=== PATIENT | female | born 1970 | race Caucasian/White ===

== ENCOUNTER 2017-07-09 14:10 | Emergency (ER) | payer BC, OTHER ==
[~2017-07-09] VITALS: Ht 167.6 cm; Wt 127.6 kg
[2017-07-09 14:20] VITALS: TEMP 37.4; Ht 167.6 cm; Wt 127.6 kg
[2017-07-09] MEDS ORDERED: DIAZEPAM 5MG TAB PO STA (15:08)
[2017-07-09] MEDS ORDERED: DULO60CA44 PO (15:18)
[2017-07-09] MEDS ORDERED: TRAZ50TA35 PO (15:18)
[2017-07-09] MEDS ORDERED: HYDR-5688 PO (15:18)
[2017-07-09] MEDS ORDERED: MISCCAP80 PO (15:18)
[2017-07-09] MEDS ORDERED: MULT-513 PO (15:18)
--- NOTE | 2017-07-09 15:29 | EMERGENCY ROOM VISIT NOTE ---
History Report prepared by Adam: Costa Campos Under the Supervision of: Dr. Octavio Gamez M.D. First contact with patient: 15:06 Chief Complaint: BACK PAIN Stated Complaint: SEVERE BACK PAIN,REFER FOR MRI T12- L1 History of Present Illness The patient is a 47 year old female who presents to the Emergency Room with complaints of constant back pain since June 10, 2017. She states that she had a fall at that time where she slipped and landed on her back and injured her left foot. She notes numbness in left leg and left foot. She states the pain worsens with walking. She currently rates her pain a 9/10 in severity. She was seen by Dr. Long and was advised to come to the ED for MRI evaluation. She notes that she had a CT scan at [place]. She states the CT scan shows injury at T12-L1. She states that she was prescribed steroids, muscle relaxers, and antiinflammatories, which she completed treatment seven days ago. She denies any urinary symptoms, diarrhea, or abdominal pain. Source of History: patient Onset: June 10, 2017 Position: back Symptom Intensity: 9/10 Timing: constant Modifying Factors (Worsening): other (walking) Associated Symptoms: + numbness (in left leg and left foot), No abdominal pain, No diarrhea, No urinary symptoms Note: Patient injured her back at T12-L1. Review of Systems See HPI for pertinent positives and negatives. A total of ten systems were reviewed and were otherwise negative. Past Medical & Surgical Medical Problems: (1) Fall (2) H/O of ankle surgery (3) Spinal stenosis Surgical Problems: (1) H/O shoulder surgery (2) H/O shoulder surgery (3) H/O: hysterectomy Family History Cancer Gallbladder disease Hypertension Social History Smoking Status: Never Smoker Smokeless Tobacco Use: No Alcohol Use: occasionally (2 per week) Drug Use: none Housing Status: lives with family Occupation Status: unemployed Current/Historical Medications Scheduled Duloxetine Hcl (Cymbalta), 60 MG PO DAILY Hydrocodone/Acetaminophen 5MG/325MG (Jefferson 5MG/325MG), 1 TABLET PO TID Multivitamins/Minerals (Mvi With Minerals), 1 TAB PO DAILY Probiotic Product (Probiotic), 2 CAP PO DAILY Trazodone Hcl (Trazodone), 100 MG PO HS Allergies Coded Allergies: Adhesives (Verified Allergy, Severe, BREAKOUT, 07/09/17) Codeine (Verified Allergy, Severe, VOMITING, 07/09/17) Erythromycin (Verified Allergy, Severe, HIVES, 07/09/17) Physical Exam Vital Signs Date Time Temp Pulse Resp B/P (MAP) Pulse Ox O2 Delivery O2 Flow Rate FiO2 07/09/17 19:59 103 16 169/106 92 07/09/17 19:12 100 16 150/99 93 Room Air 07/09/17 18:29 103 16 158/113 94 Room Air 07/09/17 17:07 64 16 142/76 97 Room Air 07/09/17 16:09 74 16 145/100 97 Room Air 07/09/17 14:20 37.4 102 20 181/101 95 Room Air Physical Exam GENERAL: Awake, alert, well-appearing, in no distress HENT: Normocephalic, atraumatic. Oropharynx unremarkable. EYES: Normal conjunctiva. Sclera non-icteric. NECK: Supple. No nuchal rigidity. FROM. No JVD. RESPIRATORY: Clear to auscultation. CARDIAC: Regular rate, normal rhythm. Extremities warm and well perfused. Pulses equal. ABDOMEN: Soft, non-distended. No tenderness to palpation. No rebound or guarding. No masses. RECTAL: Deferred. MUSCULOSKELETAL: Chest examination reveals no tenderness. The back is symmetrical on inspection without obvious abnormality. There is no CVA tenderness to palpation. No joint edema. Mild tenderness to upper and lower L- spine. No step-offs. Mild tenderness in right lumbar region extending distally in sciatica region. LOWER EXTREMITIES: Calves are equal size bilaterally and non-tender. No edema. No discoloration. Positive straight leg raise. 4/5 strength of L5. Sensation grossly in tact NEURO: Normal sensorium. No sensory or motor deficits noted. SKIN: No rash or jaundice noted. Medical Decision & Procedures ER Provider Diagnostic Interpretation: Radiology results as stated below per my review and radiologist interpretation: MRI OF THE THORACIC SPINE WITHOUT CONTRAST CLINICAL HISTORY: Severe back pain following fall. COMPARISON: None. TECHNIQUE: Utilizing a 1.5 Radha magnet and dedicated coil, multiplanar, multiecho imaging of the thoracic spine was performed without IV contrast. FINDINGS: Alignment of the thoracic spine is anatomic. Vertebral body heights are maintained. Multiple T1 and T2 hyperintense lesions within the thoracic spine reflect hemangiomas. No intracanalicular mass or fluid collection is present. There is no fracture or suspicious marrow replacement within the thoracic spine. Thoracic cord signal and caliber are normal. Paravertebral soft tissues are unremarkable. Multiple small disc protrusions are noted. These include a small right paracentral disc protrusion at T6-T7 the results in mild during of the central canal. A tiny central disc protrusion at T7-T8 results in minimal narrowing of the central canal. A small right paracentral disc protrusion at T9-T10 results in mild narrowing of the central canal. A left paracentral disc protrusion at T10-T11 indents the left ventral aspect of the cord. There is no cord signal abnormality. There is moderate narrowing of the left aspect of the canal at this level. A small right paracentral disc protrusion at T11-T12 results in mild narrowing of the central canal. IMPRESSION: 1. No thoracic spine fracture by MRI. No suspicious marrow replacement. No intracanalicular fluid collection. 2. Normal thoracic cord signal and caliber. 3. Multiple small disc protrusions within the thoracic spine, as described above. A left paracentral disc protrusion at T10-T11 indents the left ventral aspect of the cord. No cord signal abnormality. Electronically signed by: Rafi Wood M.D. 07/09/2017 6:20 PM Dictated Date/Time: 07/09/2017 6:13 PM LUMBAR SPINE W/O CONTRAST HISTORY: Trauma. Pain. Neuropathy. Findings; Heterogeneous bone marrow signal characteristics most likely age-related. Degenerative intervertebral disc change most significant from L4 through S1. Posterior bulging discs at L4-L5 and L5-S1 based on the sagittal images. No evidence for compression deformity. Heterogeneous bone marrow signal characteristics most likely age-related. L1-L2: Minimal broad-based disc bulge. L2-L3: Minimal broad-based disc bulge. Minimal narrowing left neural foramina. L3-L4: Minimal multifactorial narrowing of the spinal canal. Minimal broad-based disc bulge. L4-L5: Moderate to significant multifactorial narrowing of the spinal canal. Broad-based disc herniation. Significant narrowing of the right neuroforamina. Moderate narrowing left neuroforamina. L5-S1: Moderate multifactorial narrowing of the spinal canal. Significant narrowing of the neural foramina bilaterally. IMPRESSION: 1. Moderate broad-based disc herniations with multifactorial narrowing of the spinal canal at L4-L5 and L5-S1. 2. Significant narrowing of the right neuroforamina at L4-L5 and moderate narrowing of the left neural foramina at L4-L5 and bilaterally at L5-S1. 3. Minimal disc bulges at all additional levels. The above report was generated using voice recognition software. It may contain grammatical, syntax or spelling errors. Electronically signed by: El Rosario M.D. 07/09/2017 6:31 PM Dictated Date/Time: 07/09/2017 6:27 PM Medications Administered Medications (Trade) Dose Ordered Sig/Fitz Route Start Time Stop Time Status Last Admin Dose Admin Diazepam (Valium Tab) 5 mg NOW STAT PO 07/09/17 15:08 07/09/17 15:15 DC 07/09/17 15:23 5 MG Dexamethasone Sodium Phosphate (Dexamethasone Inj Pf) 10 mg NOW ONCE IM 07/09/17 20:00 07/09/17 20:01 DC 07/09/17 19:54 10 MG Acetaminophen/ Hydrocodone Bitart (Jefferson 5/325 Tab) 1 tab NOW STAT PO 07/09/17 19:46 07/09/17 19:48 DC 07/09/17 19:53 1 TAB ED Course 1507: The patient was evaluated in room C3. A complete history and physical exam was performed. 1903: I spoke with Dr. Long, orthopedic surgeon. We discussed the patients case. He will follow up with the patient as an outpatient. 1924: I reassessed the patient at this time. She is resting comfortably. I discussed the results and treatment plan with the patient. I answered all pertaining questions that she had. She expressed understanding and verbalized agreement. The patient will be discharged home. Medical Decision I reviewed the patient's past medical history, medications, and the nursing notes as described above. The patient's presentation and history were concerning for fracture disc herniation, disc bulge, spinal stenosis, and lumbar sacral radiculopathy The patient is a 47-year-old woman with a past medical history of recent fall back in May presents emergency department after referred [facility] concern for T12-L1 compression per hpi. The patient is no acute distress , afebrile with stable vital signs. She reports intermittent radicular symptoms in the right lower extremity. On exam the patient has grossly intact sensation however 4 out of [address] Long, spine surgeon requesting MRI, for possible admission and surgery. MRIs negative for any acute fracture or gross instability. Otherwise shows extensive disc disease which explains the patient's symptoms but no evidence of cord compromise. Discussed with Dr. Long and his concern was regarding possible T12-L1 fracture or instability and given the MRI is reassuring in this regard no indication for admission for surgery. Rather, patient will follow-up in the spine clinic for further close reviewed the patient's imaging and discussion of further treatment plan. Findings and plan for follow-up reviewed with patient. Patient agreeable and d/c'd per discharge instructions. Medication Reconcilliation Current Medication List: was personally reviewed by me Consults Time Called: 1899 Consulting Physician: Dr. Long, orthopedic surgeon Returned Call: [address] Long, orthopedic surgeon. We discussed the patients case. He will follow up with the patient as an outpatient. Impression Primary Impression: Lumbosacral disc disease Additional Impression: Lumbosacral radiculopathy Scribe Attestation The scribe's documentation has been prepared under my direction and personally reviewed by me in its entirety. I confirm that the note above accurately reflects all work, treatment, procedures, and medical decision making performed by me. Departure Information Dispostion Home / Self-Care Referrals Kilo Long,Damian.O. Forms HOME CARE DOCUMENTATION FORM, IMPORTANT VISIT INFORMATION Patient Instructions Lumbar Radiculopathy, My [facility] Additional Instructions Please follow up with your spine surgeon for re-evaluation tomorrow for an appointment next week for re-evaluation. Otherwise, your exam and MRI of your thoracic and lumbar spine did not show signs of an emergent condition at this time. Continue your current medications. Return to the emergency department for worsening symptoms as described in the accompanying instructions. Problem Qualifiers
--- NOTE | 2017-07-09 18:22 | DIAGNOSTIC IMAGING REPORT ---
MRI OF THE THORACIC SPINE WITHOUT CONTRAST CLINICAL HISTORY: Severe back pain following fall. COMPARISON: None. TECHNIQUE: Utilizing a 1.5 Radha magnet and dedicated coil, multiplanar, multiecho imaging of the thoracic spine was performed without IV contrast. FINDINGS: Alignment of the thoracic spine is anatomic. Vertebral body heights are maintained. Multiple T1 and T2 hyperintense lesions within the thoracic spine reflect hemangiomas. No intracanalicular mass or fluid collection is present. There is no fracture or suspicious marrow replacement within the thoracic spine. Thoracic cord signal and caliber are normal. Paravertebral soft tissues are unremarkable. Multiple small disc protrusions are noted. These include a small right paracentral disc protrusion at T6-T7 the results in mild during of the central canal. A tiny central disc protrusion at T7-T8 results in minimal narrowing of the central canal. A small right paracentral disc protrusion at T9-T10 results in mild narrowing of the central canal. A left paracentral disc protrusion at T10-T11 indents the left ventral aspect of the cord. There is no cord signal abnormality. There is moderate narrowing of the left aspect of the canal at this level. A small right paracentral disc protrusion at T11-T12 results in mild narrowing of the central canal. IMPRESSION: 1. No thoracic spine fracture by MRI. No suspicious marrow replacement. No intracanalicular fluid collection. 2. Normal thoracic cord signal and caliber. 3. Multiple small disc protrusions within the thoracic spine, as described above. A left paracentral disc protrusion at T10-T11 indents the left ventral aspect of the cord. No cord signal abnormality. Electronically signed by: Rafi Wood M.D. 07/09/2017 6:20 PM Dictated Date/Time: 07/09/2017 6:13 PM
--- NOTE | 2017-07-09 18:32 | DIAGNOSTIC IMAGING REPORT ---
LUMBAR SPINE W/O CONTRAST HISTORY: Trauma. Pain. Neuropathy. Findings; Heterogeneous bone marrow signal characteristics most likely age-related. Degenerative intervertebral disc change most significant from L4 through S1. Posterior bulging discs at L4-L5 and L5-S1 based on the sagittal images. No evidence for compression deformity. Heterogeneous bone marrow signal characteristics most likely age-related. L1-L2: Minimal broad-based disc bulge. L2-L3: Minimal broad-based disc bulge. Minimal narrowing left neural foramina. L3-L4: Minimal multifactorial narrowing of the spinal canal. Minimal broad-based disc bulge. L4-L5: Moderate to significant multifactorial narrowing of the spinal canal. Broad-based disc herniation. Significant narrowing of the right neuroforamina. Moderate narrowing left neuroforamina. L5-S1: Moderate multifactorial narrowing of the spinal canal. Significant narrowing of the neural foramina bilaterally. IMPRESSION: 1. Moderate broad-based disc herniations with multifactorial narrowing of the spinal canal at L4-L5 and L5-S1. 2. Significant narrowing of the right neuroforamina at L4-L5 and moderate narrowing of the left neural foramina at L4-L5 and bilaterally at L5-S1. 3. Minimal disc bulges at all additional levels. The above report was generated using voice recognition software. It may contain grammatical, syntax or spelling errors. Electronically signed by: El Rosario M.D. 07/09/2017 6:31 PM Dictated Date/Time: 07/09/2017 6:27 PM
[2017-07-09] MEDS ORDERED: HYDROCODONE/ACETAMOPHEN 5/325MG TAB PO STA (19:46)
[2017-07-09 19:59] VITALS: BP 169/106; PULSE 103; O2SAT 92
[2017-07-09] MEDS ORDERED: DEXAMETHASONE **PF** INJ 10 MG/ML VIAL IM ONE (20:00)
== END 2017-07-09 19:58 | disposition home or self-care (01) ==
LOC: C.EDB 14:11 → C.EDC 19:58
DX: M51.17 Intervertebral disc disorders with radiculopathy, lumbosacral region (principal); W19.XXXD Unspecified fall, subsequent encounter; Z90.710 Acquired absence of both cervix and uterus; Z80.9 Family history of malignant neoplasm, unspecified; Z82.49 Family history of ischemic heart disease and other diseases of the circulatory system; Z79.899 Other long term (current) drug therapy